=== PATIENT | female | born 1980 | race Caucasian/White ===

== ENCOUNTER 2018-05-07 18:02 | Emergency (ER) | payer OTHER ==
--- NOTE | 2018-05-07 18:51 | EDPHY ---
H & P Time Seen by Provider: 05/07/18 18:32 HPI/ROS: CHIEF COMPLAINT: Lightheaded, shortness of breath HISTORY OF PRESENT ILLNESS: Patient is a 37-year-old female who presents to the emergency department with complaints of lightheadedness, not feeling "right, "and intermittent dyspnea. The patient feels more short of breath while running up stairs compared to her baseline. She has also had increased migraines over the past week or 2. Patient complains of occasional palpitations. She denies chest pain or shortness of breath currently. No leg pain or swelling. She tried to lift awaiting at the beginning of the summer. Patient does have a recently diagnosed clotting disorder. She is not on anticoagulation. Patient does not take control. She does not smoke. REVIEW OF SYSTEMS: 10 systems were reveiwed and are negative with the exception of the elements mentioned in the hisotry of present illness. Past Medical/Surgical History: Includes migraines Past surgical history: Negative Social history: Patient is . She does not smoke Smoking Status: Never smoked Physical Exam: Vitals noted GENERAL: Well-appearing, in no acute distress, alert. HEENT: Eyes normal to inspection, normal pharynx, no signs of dehydration. NECK: Normal, supple. No thyromegaly. RESPIRATORY: Clear to auscultation bilaterally, no rales, rhonchi or wheezing. CVS: Regular rate and rhythm, no rubs, murmurs, or gallops. ABDOMEN: Soft, nontender, nondistended, no organomegaly. BACK: Normal to inspection, no CVA tenderness. SKIN: Normal color, no rash, warm, dry. No pallor. EXTREMITIES: No pedal edema, no calf tenderness, no Homans sign or cords, no joint swelling. NEURO/PSYCH: Alert and oriented, normal mood and affect, normal motor sensory exam. Constitutional: Initial Vital Signs Temperature (C) 37.1 C 05/07/18 18:06 Heart Rate 67 05/07/18 18:06 Respiratory Rate 18 05/07/18 18:06 Blood Pressure 131/80 H 05/07/18 18:06 O2 Sat (%) 99 05/07/18 18:06 O2 Delivery Mode Room Air Allergies/Adverse Reactions: No Known Allergies Allergy (Verified 05/07/18 18:09) Home Medications: Medication Instructions Recorded NK [No Known Home Meds] 05/07/18 Medical Decision Making ED Course/Re-evaluation: In the emergency department I discussed possible etiologies with the patient. I answered all her questions. Patient had laboratory studies drawn recently. I reviewed these laboratory studies and they appeared normal. An IV was placed. Laboratory studies, EKG were obtained. EKG shows normal sinus rhythm, normal rate, normal axis, normal intervals. There are no ST or T-wave abnormalities. EKG is normal as interpreted by me. Patient's CBC and chemistry are unremarkable. D-dimer is negative. is negative. Troponin is negative. Chest x-ray: No acute disease noted. Discussed the results with the patient. I answered all her questions. She was given warnings prior to leaving. She will return with worsening symptoms. She was given follow-up with Cardiology. Differential Diagnosis: My differential includes but is not limited to ACS, acute AK, dysrhythmia, SVT, pneumonia, bronchitis, pericarditis, pulmonary embolus, electrolyte abnormality , sugar abnormality, anemia - Data Points Laboratory Results: Laboratory Results 05/07/18 18:38 05/07/18 18:38 05/07/18 05/07/18 05/07/18 19:08 18:38 18:38 WBC RBC Hgb Hct MCV MCH MCHC RDW Plt Count MPV Neut % (Auto) Lymph % (Auto) Walton % (Auto) Eos % (Auto) Baso % (Auto) Nucleat RBC Rel Count Absolute Neuts (auto) Absolute Lymphs (auto) Absolute Monos (auto) Absolute Eos (auto) Absolute Basos (auto) Absolute Nucleated RBC Immature Gran % Immature Gran # D-Dimer Sodium 137 mEq/L mEq/L (135-145) Potassium 4.0 mEq/L mEq/L (3.3-5.0) Chloride 101 mEq/L mEq/L (97-110) Carbon Dioxide 24 mEq/l mEq/l (22-31) Anion Gap 12 mEq/L mEq/L (8-16) BUN 16 mg/dL mg/dL (7-23) Creatinine 0.8 mg/dL mg/dL (0.6-1.0) Estimated GFR > 60 Glucose 85 mg/dL mg/dL (70-100) Calcium 9.4 mg/dL mg/dL (8.5-10.4) Total Bilirubin 0.5 mg/dL mg/dL (0.1-1.4) Conjugated Bilirubin 0.1 mg/dL mg/dL (0.0-0.5) Unconjugated Bilirubin 0.4 mg/dL mg/dL (0.0-1.1) AST 30 IU/L IU/L (14-46) ALT 26 IU/L IU/L (9-52) Alkaline Phosphatase 48 IU/L IU/L (38-126) POC Troponin I 0.01 ng/mL ng/mL (0.00-0.08) NT-Pro-B Natriuret Pep 43 pg/mL pg/mL (0-125) Total Protein 7.8 g/dL g/dL (6.3-8.2) Albumin 4.5 g/dL g/dL (3.5-5.0) Lipase 119 IU/L IU/L (23-300) Beta HCG, Qual NEGATIVE 05/07/18 05/07/18 18:38 18:38 WBC 6.18 10^3/uL 10^3/uL (3.80-9.50) RBC 4.36 10^6/uL 10^6/uL (4.18-5.33) Hgb 13.3 g/dL g/dL (12.6-16.3) Hct 40.1 % % (38.0-47.0) MCV 92.0 fL fL (81.5-99.8) MCH 30.5 pg pg (27.9-34.1) MCHC 33.2 g/dL g/dL (32.4-36.7) RDW 13.4 % % (11.5-15.2) Plt Count 318 10^3/uL 10^3/uL (150-400) MPV 9.6 fL fL (8.7-11.7) Neut % (Auto) 58.4 % % (39.3-74.2) Lymph % (Auto) 32.2 % % (15.0-45.0) Walton % (Auto) 7.6 % % (4.5-13.0) Eos % (Auto) 1.0 % % (0.6-7.6) Baso % (Auto) 0.6 % % (0.3-1.7) Nucleat RBC Rel Count 0.0 % % (0.0-0.2) Absolute Neuts (auto) 3.61 10^3/uL 10^3/uL (1.70-6.50) Absolute Lymphs (auto) 1.99 10^3/uL 10^3/uL (1.00-3.00) Absolute Monos (auto) 0.47 10^3/uL 10^3/uL (0.30-0.80) Absolute Eos (auto) 0.06 10^3/uL 10^3/uL (0.03-0.40) Absolute Basos (auto) 0.04 10^3/uL 10^3/uL (0.02-0.10) Absolute Nucleated RBC 0.00 10^3/uL 10^3/uL (0-0.01) Immature Gran % 0.2 % % (0.0-1.1) Immature Gran # 0.01 10^3/uL 10^3/uL (0.00-0.10) D-Dimer 0.46 ug/mLFEU ug/mLFEU (0.00-0.50) Sodium Potassium Chloride Carbon Dioxide Anion Gap BUN Creatinine Estimated GFR Glucose Calcium Total Bilirubin Conjugated Bilirubin Unconjugated Bilirubin AST ALT Alkaline Phosphatase POC Troponin I NT-Pro-B Natriuret Pep Total Protein Albumin Lipase Beta HCG, Qual Medications Given: Discontinued Medications Aspirin (Aspirin) 324 mg PO EDNOW ONE Stop: 05/07/18 18:55 Last Admin: 05/07/18 19:03 Dose: 324 mg Sodium Chloride (Ns) 500 mls @ 1,000 mls/hr IV EDNOW ONE PRN Reason: Protocol Stop: 05/07/18 19:23 Last Admin: 05/07/18 19:09 Dose: 500 mls Point of Care Test Results: Chemistry 05/07/18 19:08 POC Troponin I 0.01 ng/mL ng/mL (0.00-0.08) Departure - Departure Disposition: Home, Routine, Self-Care Clinical Impression: Palpitations, Lightheaded Condition: Good Instructions: Heart Palpitations (ED), Lightheadedness (ED), Shortness of Breath (ED) Additional Instructions: Return to the emergency department increasing shortness of breath or chest pain. You been given contact information for [facility]. Call Tuesday to make an appointment. Referrals: [facility] [Provider Group] - 3-4 days, if not improved
[2018-05-07] MEDS ORDERED: NS 500 ML IV ONE (18:54)
[2018-05-07] MEDS ORDERED: ASPIRIN 81 MG CHEWABLE TAB PO ONE (18:54)
[2018-05-07 19:02] LABS: PLATELET COUNT 318 10^3/uL (150-400)
--- NOTE | 2018-05-07 20:17 | CPEKG ---
Test Reason : OPEN Blood Pressure : / mmHG Vent. Rate : 062 BPM Atrial Rate : 064 BPM P-R Int : 167 ms QRS Dur : 077 ms QT Int : 433 ms P-R-T Axes : 082 076 057 degrees QTc Int : 440 ms Sinus rhythm Confirmed by Luh Wise ([id number]) on 05/07/2018 8:17:08 PM Referred By: Confirmed By:Luh Wise
[2018-05-07 20:23] VITALS: BP 114/67
== END 2018-05-07 20:23 | disposition home or self-care (01) ==
DX: R00.2 Palpitations (principal); R42 Dizziness and giddiness; R06.02 Shortness of breath; E86.9 Volume depletion, unspecified
CPT/HCPCS: 84484-PO